=== PATIENT | male | born 1990 | race African-American/Black ===

== ENCOUNTER 2024-05-05 17:25 | Emergency (ER) | payer SELFPAY ==
[2024-05-05] MEDS: Lidocaine 2% 5 ML SDV INJECT ONE (17:56)
[2024-05-05] MEDS: Diphtheria,Pertussis(Acell),Tetanus Vaccine 0.5 ML Syringe IM ONE (17:56)
== END 2024-05-05 18:06 | disposition home or self-care (01) ==
LOC: MW.ED 17:25
DX: S01.511A Laceration without foreign body of lip, initial encounter (principal); W22.8XXA Striking against or struck by other objects, initial encounter
CPT/HCPCS: 12011; 99282; 99283